=== PATIENT | female | born 1990 | race Caucasian/White ===

== ENCOUNTER → 2023-10-23 | Outpatient (CLI) | payer OTHER ==
--- NOTE | 2023-10-23 19:38 | US ---
EXAMINATION TYPE: US OB anatomy transabd DATE OF EXAM: 10/23/2023 COMPARISON: None CLINICAL INDICATION: Female, 33 years old with history of Z33.1 STATE, INCIDENTAL; ; Pat ient denies any signs or symptoms TECHNIQUE: Transabdominal (TA) GESTATIONAL AGE / DATING Physician Established: (20 weeks/1 days) EDC: 03/10/2024 Dates by LMP: (20 weeks/1 days) EDC: 03/10/2024 Dates by First Scan: (20 weeks/1 days) EDC: 03/10/2024 Dates by Current Scan: (20 weeks/0 days) EDC: 03/11/2024 Beta HCG (if available): Not available at this time SURVEY IUP: Single PLACENTA: Posterior PREVIA: No Previa FRANCINE: 12.7 cm Normal CERVICAL LENGTH (transabdominal: norm > 3.0cm): 5.0 cm BIOMETRY PRESENTATION: Breech LIE: Longitudinal BPD: 4.37 cm 19 weeks / 2 days HC: 17.37 cm 20 weeks / 0 days AC: 14.77 cm 20 weeks / 1 days FL: 3.24 cm 20 weeks / 1 days ESTIMATED WEIGHT IN GRAMS: 328 grams ESTIMATED WEIGHT IN LBS/OZ: 0 lbs. 12 oz. WEIGHT PERCENTAGE BASED ON ESTABLISHED DATES: 39% HC/AC: 1.18 Normal FL/AC: 22% Normal HEART RATE: 147 bpm RHYTHM: Normal ANATOMY SEEN (within normal limits): * Lateral Vent (< 1 cm) 0.7 cm * Cisterna Magna (< 1.1 cm) 0.31 cm * Nuchal Fold (< 0.6 cm) 0.3 cm * Cerebellum (varies with age) 2.17 cm Choroid Plexus (bilateral) Midline Falx Cavus Septi Pellucidi Four Chamber Heart Outflow tracts: LVOT/RVOT Stomach Situs Nose / Lips Diaphragm Bladder Cord Insert Three Vessel Cord Longitudinal Spine Transverse Spine Arms (bilateral) Legs (bilateral) ANATOMY SEEN (does not appear within normal limits): Bilateral renal pelvis dilation. ANATOMY NOT SEEN: All anatomy seen. IMPRESSION: Single live intrauterine gestation ultrasound age 20 weeks 0 days.
== END | disposition home or self-care (01) ==
LOC: RADUSWWP 15:59
PROVIDERS: ATTEND Obstetrics & Gynecology
DX: Z33.1 Pregnant state, incidental (principal); Z3A.20 20 weeks gestation of pregnancy
CPT/HCPCS: 76811